=== PATIENT | male | born 1985 | race Caucasian/White ===

== ENCOUNTER 2017-01-05 05:43 | Emergency (ER) | payer OTHER ==
[~2017-01-05] VITALS: Ht 182.9 cm; Wt 72.6 kg
[2017-01-05 06:08] VITALS: BP 130/80
--- NOTE | 2017-01-05 06:17 | ED GENERAL ADULT ---
History of Present Illness General Chief Complaint: General Adult Stated Complaint: MULTI COMP,"KNEE CAPS HURT,SEVERE BACK PAIN...." Source: patient Exam Limitations: no limitations Vital Signs & Intake/Output Vital Signs & Intake/Output Vital Signs Date Time Temp Pulse Resp B/P Pulse O2 O2 Flow FiO2 Ox Delivery Rate 01/05 0608 97.9 86 18 130/80 98 Room Air Allergies Coded Allergies: MDX - Cefaclor (From [facility]) (07/07/11) Reconcile Medications Ibuprofen 800 MG TABLET 1 TAB PO TID PRN PAIN Triage Note: PT HAS CHRONIC BACK AND NECK PAIN USES MEDICAL MARIJUANA PT TONIGHT C/O RT KNEE PAIN Triage Nurses Notes Reviewed? yes Onset: Gradual Duration: week(s):, waxing and waning Timing: recent history Injury Environment: home Severity: moderate Modifying Factors: Improves With: rest. Worsens With: movement. Associated Symptoms: "My back hurts." HPI: 31-year-old gentleman in prior good health presents with multiple concerns. 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 Both of my knees hurt in my upper back hurts as well." He states that he is able to ambulate, lift, and bend without problem. He states there is been no recent fall or traumatic injury. He is otherwise well. Past History Travel History Traveled to [place] past 21 day No Medical History Any Pertinent Medical History? see below for history Neurological: NONE EENT: NONE Cardiovascular: NONE Respiratory: NONE Gastrointestinal: NONE Hepatic: NONE Renal: NONE Musculoskeletal: NONE Psychiatric: NONE Endocrine: NONE Blood Disorders: NONE Cancer(s): NONE Surgical History Surgical History: none Psychosocial History What is your primary language Danish Tobacco Use: Current Daily Use Daily Tobacco Use Amount/Type: => 5 Cigarettes daily ETOH Use: occasional use Family History Hx Contributory? No Review of Systems Review of Systems Constitutional: Reports: no symptoms. EENTM: Reports: no symptoms. Respiratory: Reports: no symptoms. Cardiovascular: Reports: no symptoms. GI: Reports: no symptoms. Genitourinary: Reports: no symptoms. Musculoskeletal: Reports: no symptoms. Skin: Reports: no symptoms. Neurological/Psychological: Reports: no symptoms. Hematologic/Endocrine: Reports: no symptoms. Immunologic/Allergic: Reports: no symptoms. All Other Systems: Reviewed and Negative Physical Exam Physical Exam General Appearance: well developed/nourished, no apparent distress Head: atraumatic, normal appearance Eyes: Bilateral: normal appearance. Ears, Nose, Throat: normal pharynx, normal ENT inspection Neck: normal inspection, supple, full range of motion Respiratory: normal breath sounds, chest non-tender, no respiratory distress, quiet respiration, lungs clear Cardiovascular: regular rate/rhythm Gastrointestinal: normal bowel sounds, soft, non-tender, no organomegaly Back: normal inspection, normal range of motion Extremities: mild crepitus in both knees. Small effusion bilaterally. No increased warmth. No focal bony tenderness. Ligaments are intact bilaterally. Neurologic/Psych: no motor/sensory deficits, awake, alert, oriented x 3 Skin: intact, normal color, warm/dry Core Measures ACS in differential dx? No CVA/TIA Diagnosis: No Severe Sepsis Present: No Septic Shock Present: No Progress Differential Diagnoses I considered the following diagnoses in my evaluation of the patient: Myalgia versus chronic sprain versus meniscal tear versus radiculopathy versus osteoarthritis versus other. Plan of Care: see below Initial ED EKG: none Departure Departure Disposition: HOME OR SELF CARE Condition: Stable Clinical Impression Primary Impression: Arthralgia Secondary Impressions: Back pain, Chronic pain Referrals: PATIENT HAS NO PRIMARY CARE DR (PCP/Family) Departure Forms: Customer Survey General Discharge Information Prescriptions: Current Visit Scripts Ibuprofen 1 TAB PO TID PRN PAIN #30 TAB Ref 1 Comments Patient with benign exam, suggestive of early osteoarthritis given his demented work schedule. I prescribed ibuprofen. I advised close follow-up with his primary care provider. Critical Care Note Critical Care Note Critical Care Time: non-applicable
[2017-01-05] MEDS ORDERED: IBUPROFEN800 M1 PO (06:24)
[2017-01-06] MEDS ORDERED: DELTASONE20 MG PO (04:26)
== END 2017-01-05 06:39 ==
LOC: ERH 05:43
DX: M25.561 Pain in right knee (principal); M25.562 Pain in left knee; G89.29 Other chronic pain; M54.6 Pain in thoracic spine

== ENCOUNTER 2017-01-06 02:41 | Emergency (ER) | payer OTHER ==
[~2017-01-06 02:41] MED LIST: IBUPROFEN800 M1 PO
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
[2017-01-06 03:48] VITALS: BP 112/60
[2017-01-06] MEDS ORDERED: DELTASONE20 MG PO (04:26)
== END 2017-01-06 04:30 ==
LOC: ERH 02:41
DX: M25.561 Pain in right knee (principal); M25.562 Pain in left knee

== ENCOUNTER 2017-01-29 16:43 | Emergency (ER) | payer OTHER ==
[~2017-01-29] VITALS: Ht 185.4 cm; Wt 81.6 kg
[~2017-01-29 16:43] MED LIST changes: +DELTASONE20 MG PO
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
[2017-01-29 17:50] LABS: ABSOLUTE BASOPHIL COUNT 0 /CUMM (0.0-0.2); ABSOLUTE EOSINOPHIL COUNT 0.1 /CUMM (0.0-0.7); ABSOLUTE GRANULOCYTE CT 5.2 /CUMM (1.4-6.5); ABSOLUTE LYMPH COUNT 2.2 /CUMM (1.2-3.4); ABSOLUTE MONOCYTE COUNT 0.6 /CUMM (0.10-0.60); BASOPHIL % 0.6 % (0.0-2.0); EOSINOPHIL % 1.2 % (0-5); GRANULOCYTE % 63.9 % (42.2-75.2); HEMATOCRIT 36.6 % (42-52); MEAN CORPUSCULAR HGB CONC 32.8 G/DL (33.0-37.0); MEAN CORPUSCULAR VOLUME 82.3 FL (80.0-94.0); MEAN PLATELET VOLUME 7.6 FL (7.4-10.4); PLATELET COUNT 270 /CUMM (130-400); RBC DISTRIBUTION WIDTH 16.2 % (11.5-14.5); RED BLOOD CELL CT 4.44 /CUMM (4.70-6.10); WHITE BLOOD CELL COUNT 8.2 /CUMM (4.8-10.8)
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
[2017-01-30 10:12] VITALS: BP 120/81
== END 2017-01-30 10:25 ==
LOC: ERH 16:43
PROVIDERS: Emergency Medicine
DX: F14.10 Cocaine abuse, uncomplicated (principal); F22 Delusional disorders
CPT/HCPCS: 80307; 93005; 93010; G0463; G0480

== ENCOUNTER 2017-02-02 03:53 | Emergency (ER) | payer OTHER ==
[~2017-02-02] VITALS: Ht 186.7 cm; Wt 81.6 kg
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
--- NOTE | 2017-02-02 07:19 | RADIOLOGY REPORT ---
EXAMINATION: RIGHT HAND AND RIGHT WRIST. CLINICAL INFORMATION: Structures. Sign. Pain. COMPARISON: None. TECHNIQUE: 3 views right hand and 3 views right wrist. FINDINGS: RIGHT HAND: Tiny bone fragment dorsal to the distal carpal bones. Otherwise rest of the right hand appears unremarkable. RIGHT WRIST: There is a tiny bone fragment dorsal to the distal carpal bones probably small avulsion fracture. This is best seen on the lateral projection right wrist and right hand. There is no additional bony abnormality. No soft tissue swelling suspected. IMPRESSION: Is a tiny bone fragment dorsal to the distal carpal bones and lateral view. This may be a small avulsion bone fragment fracture. No additional bony abnormality seen in the right hand or right wrist. The soft tissues are normal.
[2017-02-02] MEDS ORDERED: PERCOCET 5-3251 EACH PO (07:53)
[2017-02-02 07:58] VITALS: BP 131/82
== END 2017-02-02 08:08 ==
LOC: ERH 03:53
DX: M79.641 Pain in right hand (principal)
CPT/HCPCS: 73110-RT; 73130-RT

== ENCOUNTER 2017-02-04 14:56 | Emergency (ER) | payer OTHER ==
[~2017-02-04 14:56] MED LIST changes: +PERCOCET 5-3251 EACH PO
[2017-02-04 15:30] VITALS: BP 120/71
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
[2017-02-04] MEDS ORDERED: PERCOCET 5-3251 EACH PO (16:31)
== END 2017-02-04 16:54 ==
LOC: ERH 14:56
DX: S02.2XXA Fracture of nasal bones, initial encounter for closed fracture (principal); S01.111A Laceration without foreign body of right eyelid and periocular area, initial encounter; Y04.8XXA Assault by other bodily force, initial encounter; Y92.89 Other specified places as the place of occurrence of the external cause; Y93.9 Activity, unspecified
CPT/HCPCS: 90471; 90714

== ENCOUNTER 2017-02-06 04:51 | Emergency (ER) | payer OTHER ==
[~2017-02-06] VITALS: Ht 182.9 cm; Wt 59.0 kg
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
[2017-02-06 05:03] VITALS: BP 127/69
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
== END 2017-02-06 06:07 ==
LOC: ERH 04:51
DX: S39.012A Strain of muscle, fascia and tendon of lower back, initial encounter (principal); M54.6 Pain in thoracic spine; Y04.0XXD Assault by unarmed brawl or fight, subsequent encounter; Y93.9 Activity, unspecified; Y92.9 Unspecified place or not applicable
CPT/HCPCS: 72070; 72100